=== PATIENT | male | born 1930 | race Caucasian/White ===

== ENCOUNTER → 2020-06-29 | Outpatient (CLI) | payer MEDICARE ==
[~2020-06-29] MED LIST: AC325T PO; AC500T PO; ASP81TEC PO; BUDE6HFA IH; DIPH1TAB PO; DOXA8TAB3 PO; DXZS4T PO; HYDR-3720 PO; IBUP-30 PO; LATA2.5D5 OP; LOSA100T16 PO; MORP10CA7 IV; MTF500T PO; OXYC-188 PO; SENN8.6T80 PO; TRAM50TA2 PO; VENL150C PO
--- NOTE | 2020-06-29 11:21 | Diagnostic Imaging Report ---
PROCEDURE: CT abdomen and pelvis without contrast. TECHNIQUE: Multiple contiguous axial images were obtained through the abdomen and pelvis without the use of intravenous contrast. Auto Exposure Controls were utilized during the CT exam to meet ALARA standards for radiation dose reduction. INDICATION: 89-year-old male with elevated prostatic specific antigen. CORRELATION STUDY: None. FINDINGS: LOWER THORAX: Lung bases clear. Heart size normal with calcification of the coronary arteries. Small hiatal hernia. LIVER: Unremarkable on unenhanced imaging. GALLBLADDER: Present and unremarkable. No bile duct dilatation. SPLEEN: Unremarkable. PANCREAS: Atrophic. ADRENAL GLANDS: Unremarkable. KIDNEYS: Likely mild scar formation inferior pole right kidney. 13 mm exophytic mass inferior pole left kidney. Additional small exophytic mass inferior pole right kidney. Favors cyst, however these cannot be completely characterized on this study. No constipation or obstruction. ABDOMINAL AORTA: Scattered mild wall calcification. Slight ectasia, maximum dimension 2.7 cm. GASTROINTESTINAL TRACT: Moderate stool through the colon. Left inguinal hernia contains segments of distal colon. No obstruction or inflammation suggested. Colonic diverticulosis without evidence for acute diverticulitis. URINARY BLADDER: Unremarkable. REPRODUCTIVE: Prostate gland enlarged at approximately 5.9 x 5.4 x 6.3 cm. Contour deformity at the bladder base. OSSEOUS STRUCTURES: Diffuse free-flowing bridging osteophytes large portion lower thoracic lumbar spine can be reflective of underlying ankylosing spondylosis. There is also bony fusion across the posterior elements. Multilevel decompressive laminectomies lumbar spine. There is also fusion across bilateral sacroiliac joints. No janna lytic or sclerotic changes. OTHER: No pathologically enlarged abdominal pelvic lymphadenopathy. IMPRESSION: 1. Enlarged prostate gland. 2. No pathologically enlarged abdominal and/or pelvic lymphadenopathy. 3. Left inguinal hernia contains some segments of distal colon without current obstruction or inflammation. Colonic diverticulosis without diverticulitis. Moderate stool retention. 4. Findings of ankylosing spondylitis. Dictated by: Dictated on workstation # [id number]
--- NOTE | 2020-06-29 16:32 | Diagnostic Imaging Report ---
INDICATION: Newly diagnosed prostate carcinoma. TECHNIQUE: The patient was administered 27.0 mCi of technetium 99m MDP intravenously and whole-body imaging was performed after a three-hour delay. COMPARISON: No prior studies are available for comparison. FINDINGS: There is normal uptake of activity by the axial and appendicular skeleton. There is uptake by both kidneys with excretion into the urinary bladder. Very mild uptake in the lower lumbar spine is noted which may be degenerative. No suspicious focus is seen to suggest osseous metastatic disease. There is photopenia overlying the bilateral knees, consistent with bilateral knee replacements. IMPRESSION: No scintigraphic evidence of osseous metastatic disease. Dictated by: Dictated on workstation # [id number]
== END ==
LOC: CARD 10:39
PROVIDERS: ATTEND Urology
DX: N40.1 Benign prostatic hyperplasia with lower urinary tract symptoms (principal); M89.8X9 Other specified disorders of bone, unspecified site; K40.90 Unilateral inguinal hernia, without obstruction or gangrene, not specified as recurrent; K57.30 Diverticulosis of large intestine without perforation or abscess without bleeding; K59.00 Constipation, unspecified; M45.9 Ankylosing spondylitis of unspecified sites in spine
CPT/HCPCS: 74176; 78306; A9503